=== PATIENT | male | born 1970 | race Caucasian/White ===

== ENCOUNTER 2020-04-23 16:50 | Emergency (ER) | payer OTHER, SELFPAY ==
[2020-04-23 17:06] VITALS: BP 161/87; PULSE 72; RESP 18; TEMP 36.7; O2SAT 99
--- NOTE | 2020-04-23 17:29 | ED.WOUNDLAC ---
HPI - Wound/Laceration General Chief Complaint: Wound/Laceration Stated Complaint: left hand injury Source: patient Mode of arrival: ambulatory Limitations: no limitations History of Present Illness HPI narrative: Lacerated left thumb at 4:45 PM today while cutting wood with a hand saw. The thumb hurts. He denies numbness.He's able to flex and extend at the MCP and IP joint. Last tetanus over 6 years ago. Related Data Allergies Allergy/AdvReac Type Severity Reaction Status Date / Time No Known Allergies Allergy Verified 04/23/20 17:05 Review of Systems Constitutional: Constitutional: Denies chills and Denies fever(s) Musculoskeletal: Musculoskeletal: Reports no additional musculoskeletal complaints Neurologic: Denies numbness PMFSH Past Medical History Medical History (Updated 04/25/20 @ 13:58 by Alberto Zavala MD) Patient denies significant medical history Social History Social History Gender identity (if verbalized by the patient): Male Exam Extrem: Other: lac. left dorsal proximal phalanx of thumb. Oozing blood. Active, painless , MCP and IP full extension and flexion. NO pain or weakness when extension and MCP and IP joints. Course Course Emergency Course: Bleeding stopped after 25 minutes of pressure dressing. I explained I cannot be certain there was no tendon injury based on incomplete evaluation of base of wound. Pt. given cephalexin and d.c. with instructions to f/u with Dr. Harris in 2 days. Vital Signs Vital signs: Vital Signs Temperature 36.7 C 04/23/20 17:06 Pulse Rate 72 04/23/20 17:06 Respiratory Rate 18 04/23/20 17:06 Blood Pressure 161/87 H 04/23/20 17:06 Pulse Oximetry 99 04/23/20 17:06 Temperature 36.4 C L 04/23/20 18:59 Pulse Rate 84 04/23/20 18:59 Respiratory Rate 16 04/23/20 18:59 Blood Pressure 154/69 H 04/23/20 18:59 Pulse Oximetry 100 04/23/20 18:59 Procedures Laceration Laceration 1: Date: 04/23/20 Time: 18:10 Site: hand (Transverse lac of dorsal proximal phalanx of thumb) Side (If applicable): left Size (cm): 2 Description: linear Depth: simple, single layer Local Anesthetic: lidocaine 1% Amount of anesthesia used (mL): 3 Pre-repair: wound explored (Full base of wound not completely visualized. 1 midline tendon visualized: intact) and irrigated (120 ml of water) ====== Skin Level ====== Skin layer closed with: nylon and prolene Size (cm): 3-0 and 4-0 Number of sutures: 4 Technique: simple, interrupted ====== Subcutaneous Layer ====== ====== Muscle Layer ====== ====== Tendon Layer ====== Dressing: nurse instructed to dress then splint IP joint only MDM - Wound/Laceration MDM Narrative Medical decision making narrative: Extensor polis longus appears intact and functional; partial laceration is possible. Discharge Plan Discharge Clinical Impression: Laceration Patient Disposition: Home, Self-Care Condition: Stable Instructions: Antibiotic Form, Finger Laceration (ED) Additional Instructions: keep splint on finger. See Dr. Harris in 2 days. Recheck if worse. Prescriptions: New cephalexin 500 mg capsule 500 mg PO Q8H Qty: 15 RF: 0 Follow-up/Referrals: Ayo Harris MD [Primary Care Provider] - Time of Disposition: 18:24 Discharge Date/Time: 04/23/20 19:02
[2020-04-23] MEDS: ACETAMINOPHEN 500 MG TABLET 1000 MG PO (17:42)
[2020-04-23] MEDS: TETANUS,DIPHTHERIA,AC PERTUSSIS ADULT 0.5 ML (ADACEL) IM (17:43)
[2020-04-23] MEDS: LIDOCAINE HCL 1% LOCAL INJ 20 ML VIAL 5 ML INFILTRATE (17:46)
--- NOTE | 2020-04-23 18:57 | PC.NURSE ---
left thumb suture line cleaned and bandaid applied. short metal finger splint applied to same. neuro-circ checks to distal left thumb wnl.
[2020-04-23 18:59] VITALS: BP 154/69; PULSE 84; RESP 16; TEMP 36.4; O2SAT 100
== END 2020-04-23 19:02 | disposition home or self-care (01) ==
PROVIDERS: Emergency Provider Family Medicine; PCP Internal Medicine
DX: S61.012A Laceration without foreign body of left thumb without damage to nail, initial encounter (principal); W27.8XXA Contact with other nonpowered hand tool, initial encounter
CPT/HCPCS: 12001; 90471; 90715; 99281; 99283; A9270

== ENCOUNTER 2020-09-11 15:12 | Outpatient (CLI) | payer OTHER, SELFPAY ==
[2020-09-11 16:09] LABS: SARS-CoV-2 Ag Negative (Negative)
== END 2020-09-11 15:13 | disposition home or self-care (01) ==
LOC: CHSLAB 15:15
PROVIDERS: PCP Internal Medicine; Visit Provider Internal Medicine
DX: Z20.828 Contact with and (suspected) exposure to other viral communicable diseases (principal)
CPT/HCPCS: 87426; C9803

== ENCOUNTER 2021-06-15 12:54 | Outpatient (CLI) | payer OTHER, SELFPAY ==
[2021-06-15 13:52] LABS: SARS-CoV-2 RNA PCR Negative (Negative)
== END 2021-06-15 12:55 | disposition home or self-care (01) ==
LOC: CHSLAB 12:57
PROVIDERS: PCP Internal Medicine; Visit Provider Internal Medicine
DX: Z20.822 Contact with and (suspected) exposure to COVID-19 (principal)
CPT/HCPCS: C9803; U0003; U0005

== ENCOUNTER 2022-01-05 08:17 | Outpatient (CLI) | payer OTHER, SELFPAY ==
[2022-01-05 09:00] LABS: Alanine Aminotransferase 99 U/L (16-63); Alkaline Phosphatase 91 U/L (46-116); Anion Gap 5 mmol/L (8-16); Aspartate Amino Transferase 35 U/L (15-37); Bilirubin,Total 0.6 mg/dL (0.00-1.00); Blood Urea Nitrogen 13 mg/dL (7-18); Carbon Dioxide 29 mmol/L (21-32); Chloride 100 mmol/L (98-108); Cholesterol 227 mg/dL (0-200); Estimated Glomerular Filt Rate > 60; Glucose 107 mg/dL (70-99); HDL Direct 44 mg/dL (40-60); LDL Cholesterol Calculated 155 mg/dL (<130); Osmolality Calculated 278 mOsm/kg (285-295); Potassium 4.4 mmol/L (3.5-5.1); Sodium 134 mmol/L (136-145); Total Protein 7.7 g/dL (6.4-8.2); Triglycerides 142 mg/dL (0-150)
[2022-01-10 04:50] LABS: Hepatitis A Antibody IgM Nonreactive; Hepatitis B Core Antibody Nonreactive (Nonreactive); Hepatitis B Surface Antigen Nonreactive (Nonreactive); Hepatitis C Signal to Cutoff 0.01 ratio (<1.00); Hepatitis C Virus Antibody Nonreactive (Nonreactive)
== END 2022-01-05 08:18 | disposition home or self-care (01) ==
LOC: CHSLAB 08:19
PROVIDERS: PCP Internal Medicine; Visit Provider Internal Medicine
DX: E78.5 Hyperlipidemia, unspecified (principal); R94.5 Abnormal results of liver function studies
CPT/HCPCS: 36415; 80053; 80061; 80074

== ENCOUNTER 2022-08-20 03:38 | Emergency (ER) | payer OTHER, SELFPAY ==
[2022-08-20] VITALS (25 sets, daily range): BP systolic 112–146; BP diastolic 61–83; PULSE 76–108; RESP 16–24; TEMP 36.2–37.9; O2SAT 90–97
--- NOTE | ~2022-08-20 | XR_ITS ---
EXAMINATION: XR chest 1V portable DATE: 08/20/2022 04:11 INDICATION: Cough and shortness of breath. TECHNIQUE: A single frontal view of the chest was obtained. COMPARISON: Chest 2 views 02/23/2016 FINDINGS: There are airspace opacities in left lower lobe, consistent with pneumonia. No pleural effu ayaka or pneumothorax. The heart size is normal. IMPRESSION: 1. Left lower lobe pneumonia. Reviewed, dictated and finalized at location A. OR SOLUTIONS ARCHITECT
--- NOTE | ~2022-08-20 | CT_ITS ---
EXAMINATION: CTA chest PE protocol DATE: 08/20/2022 05:45 INDICATION: Shortness of breath. TECHNIQUE: Computed tomography angiography (CTA) of the chest was performed with 100 mL Omnipaque-350 intravenous contrast timed to evaluate the pulmonary arteries. Coronal maximum intensity projection 3D-reconstructions were created by the technologist. Automated exposure control and iterative reconst ruction technique were employed. The dose-length product was 823.82 mGy-cm. COMPARISON: None. FINDINGS: There is mild emphysema. There are airspace opacities in left lower lobe with air bronchogr ams, consistent with pneumonia. There is mild atelectasis bilaterally. No pleural effusion. The heart size is normal. No pericardial effusion. There is no pulmonary embolus. There is mild thoracic spond ylosis. There is mild chronic anterior wedging of multiple vertebral bodies. IMPRESSION: 1. No pulmonary embolus. 2. Left lower lobe pneumonia. 3. Mild emphysema. Reviewed, dictated and finalized at location A. COAT WIPER
--- NOTE | 2022-08-20 03:51 | ED.URI ---
HPI - URI/Sore Throat General Chief Complaint: Upper Respiratory Infection Stated Complaint: sick Time Seen by Provider: 08/20/22 03:51 Source: patient Mode of arrival: ambulatory Limitations: no limitations History of Present Illness HPI Narrative: 51-year-old male presents to the ER with a 4 day history of -- generalized weakness and body -- nonproductive cough -- sore throat -- shortness of breath -- fever with the current temperature of 100.3? prior history of bronchitis. patient is a nonsmoker not COVID vaccinated MD elicited complaint: fever, cough and sore throat Onset (ago): day(s) ( symptoms started 4 days ago.) Consistency: constant Severity: moderate Able to tolerate fluids by mouth: Yes Exacerbating factors: nothing Relieving factors: nothing Associated symptoms: fever, myalgias, sore throat, cough, shortness of breath and nausea Treatments prior to arrival: none Related Data Allergies Allergy/AdvReac Type Severity Reaction Status Date / Time No Known Allergies Allergy Verified 04/23/20 17:05 Review of Systems Review of Systems: All systems reviewed & are unremarkable except as noted in HPI and below Constitutional: Constitutional: Reports as per HPI, Reports no additional constitutional complaints, Reports fever(s) and Reports weakness Eyes: Eyes: Reports as per HPI and Reports no additional eye complaints ENT: Reports system reviewed and no additional complaints, except as documented, Reports as per HPI and Reports sore throat Cardiovascular: Cardiovascular: Reports as per HPI and Reports no additional cardiovascular complaints Respiratory: Respiratory: Reports as per HPI and Reports no additional respiratory complaints Gastrointestinal: Gastrointestinal: Reports as per HPI, Reports no additional gastrointestinal complaints and Reports nausea Genitourinary: Genitourinary: Reports no additional male genitourinary complaints and Reports as per HPI Musculoskeletal: Musculoskeletal: Reports no additional musculoskeletal complaints and Reports as per HPI Integumentary/Breasts: Skin/Breast: Reports system reviewed and no additional complaints, except as docu and Reports as per HPI Neurologic: Reports system reviewed and no additional complaints, except as documented and Reports as per HPI Psychiatric: Psychiatric: Reports no additional psychiatric complaints and Reports as per HPI Endocrine: Endocrine: Reports no additional endocrine complaints and Reports as per HPI Hematologic/Lymphatic: Hematologic/Lymphatic: Reports no additional hematologic/lymphatic complaints and Reports as per HPI Allergic/Immunologic: Allergic/Immunologic: Reports no additional allergic/immunologic complaints and Reports as per HPI PMF Past Medical History Medical History Patient denies significant medical history Social History Social History Gender identity (if verbalized by the patient): Male Exam Const: General: no acute distress Nutritional Appearance: well nourished Orientation/consciousness: patient oriented x3 Limitations: no limitations HENMT: Head: normal to inspection Ears: external ears normal Face/Nose/Sinus: Normal external nose present Face and sinus: normal facial exam Mouth: Yes Normal oral and palatal mucosa present Throat: posterior oropharynx normal ( Pharyngeal erythema) Eyes: Conjunctivae: conjunctivae normal Pupils: Equal, round and reactive pupils present EOM: EOMs intact bilaterally Direct Ophthalmoscopy: no photophobia Neck: Neck: normal visual inspection, no lymphadenopathy and no meningeal signs Resp: Effort & Inspection: normal respiratory effort Auscultation: diminished lung sounds Cardio: Rate: regular rate Rhythm: regular rhythm GI: GI Palp: Yes Soft to palpation Other: no tenderness/rigidity / rebound. : General: Yes no CVA tenderness Testes: Te
--- NOTE | 2022-08-20 04:00 | ECG_ITS ---
Measurements Intervals Boyd Rate: 91 P: 67 ID: [id number] QRS: 5 QRSD: 87 T: 51 QT: 315 QTc: 389 Interpretive Statements SINUS RHYTHM NONSPECIFIC T-WAVE ABNORMALITY NO PREVIOUS ECG AVAILABLE FOR COMPARISON Electronically Signed On 08-20-2022 19:15:[address] LIGHT REPAIRER HELPER by Ann Horton M.D.
[2022-08-20] MEDS: IPRATROPIUM 0.5 MG/ALBUTEROL SULFATE 2.5 MG AMPUL.NEB 3 ML INHALATION (04:15)
[2022-08-20] MEDS: ACETAMINOPHEN 325 MG TABLET 650 MG PO (04:26)
[2022-08-20 04:31] LABS: Basophils Absolute Auto 0.01 K/mm3 (0.00-0.10); Basophils Percent Auto 0.1 % (0.0-1.0); Eosinophils Absolute Auto 0.02 K/mm3 (0.02-0.50); Eosinophils Percent Auto 0.2 % (1.0-6.0); Hematocrit 43.1 % (40.0-54.0); Hemoglobin 14.9 g/dL (14.0-18.0); Immature Granulocyte Absolute 0.02 K/mm3 (0.00-0.00); Immature Granulocyte Percent A 0.2 % (0.0-0.0); Lymphocytes Absolute Auto 0.77 K/mm3 (1.10-4.50); Lymphocytes Percent Auto 9.2 % (18.0-42.0); Mean Corpuscular HGB Conc 34.6 g/dL (32.0-36.0); Mean Corpuscular Hemoglobin 33.3 pg (27.0-31.0); Mean Corpuscular Volume 96.2 fL (78.0-102.0); Mean Platelet Volume 9.6 fl (8.7-11.0); Monocytes Absolute Auto 0.58 K/mm3 (0.10-0.90); Monocytes Percent Auto 6.9 % (2.0-11.0); Neutrophils Percent Auto 83.4 % (50.0-70.0); Platelet Count Result 165 K/mm3 (150-420); Red Blood Count 4.48 M/mm3 (4.70-6.10); Red Cell Distribution Width 11.8 % (11.6-14.4); White Blood Count 8.4 K/mm3 (4.8-10.8)
[2022-08-20 04:42] LABS: Strep Group A RT-PCR NOT DETECTED (Negative)
[2022-08-20 04:44] LABS: INR 1.1; Prothrombin Time 11.6 Seconds (9.50-12.10)
[2022-08-20 04:48] LABS: Influenza A QL RT-PCR Negative (Negative); Influenza B QL RT-PCR Negative (Negative); SARS-CoV-2 RNA PCR Negative (Negative)
[2022-08-20 04:51] LABS: Lactic Acid Reflex 1.2 mmol/L (0.4-2.0)
[2022-08-20 04:53] LABS: Alanine Aminotransferase 45 U/L (16-63); Albumin Level 3.9 g/dL (3.4-5.0); Alkaline Phosphatase 75 U/L (46-116); Anion Gap 8 mmol/L (8-16); Aspartate Amino Transferase 22 U/L (15-37); Bilirubin,Total 0.9 mg/dL (0.00-1.00); Blood Urea Nitrogen 17 mg/dL (7-18); Calcium 8.4 mg/dL (8.5-10.1); Carbon Dioxide 28 mmol/L (21-32); Chloride 97 mmol/L (98-108); Estimated CRCL calculation 99 ml/min; Estimated Glomerular Filt Rate > 60; Glucose 120 mg/dL (70-99); NT Pro B Type Natriuretic Pept 15 pg/mL (0-125); Osmolality Calculated 278 mOsm/kg (285-295); Potassium 3.9 mmol/L (3.5-5.1); Sodium 133 mmol/L (136-145); Total Protein 7.3 g/dL (6.4-8.2); Troponin I 8.5 ng/L (0.00-60.4)
[2022-08-20 05:12] LABS: D Dimer 0.62 mg/L (0.19-0.50)
[2022-08-20] MEDS: LACTATED RINGERS 1,000 ML 999 ML IV CONT (06:08)
--- NOTE | 2022-08-20 07:03 | PC.NURSE ---
report to sepideh brown , no questions or concerns.
== END 2022-08-20 08:24 | disposition home or self-care (01) ==
PROVIDERS: Emergency Provider Internal Medicine Critical Care Medicine; PCP Internal Medicine
DX: J18.9 Pneumonia, unspecified organism (principal); Z20.822 Contact with and (suspected) exposure to COVID-19; R06.02 Shortness of breath
CPT/HCPCS: 36415; 71045; 71275; 80053; 83605; 83880; 84484; 85025; 85380; 85610; 87636; 87651; 93005; 94640; 96361; 96365; 99284; A9270; J1956; J7120; Q9967

== ENCOUNTER 2022-09-23 15:55 | Outpatient (CLI) | payer OTHER, SELFPAY ==
--- NOTE | ~2022-09-23 | XR_ITS ---
XR chest 2V 09/23/2022 16:11 Indication: Follow-up pneumonia Procedure: 2 view chest Comparison: Comparison to multiple prior studies sequentially, with oldest reviewed study dated 02/22. Findings: Heart size normal. No focal air space disease, pulmonary edema, pleural effusion or suspect ed pneumothorax. No acute osseous abnormality. Impression: 1: No acute cardiopulmonary disease. Reviewed, dictated and finalized at location A. TRONIC PREPRESS OPERATOR Impression: 1: No acute cardiopulmonary disease.
== END 2022-09-23 15:56 | disposition home or self-care (01) ==
LOC: CHSIMG 15:57
PROVIDERS: PCP Internal Medicine; Visit Provider Internal Medicine
DX: J18.9 Pneumonia, unspecified organism (principal)
CPT/HCPCS: 71046

== ENCOUNTER 2023-01-18 09:37 | Outpatient (CLI) | payer OTHER, SELFPAY ==
[2023-01-18 09:56] LABS: Basophils Absolute Auto 0.03 K/mm3 (0.00-0.10); Basophils Percent Auto 0.5 % (0.0-1.0); Eosinophils Absolute Auto 0.07 K/mm3 (0.02-0.50); Eosinophils Percent Auto 1.1 % (1.0-6.0); Hematocrit 45.3 % (40.0-54.0); Hemoglobin 15.9 g/dL (14.0-18.0); Immature Granulocyte Absolute 0.01 K/mm3 (0.00-0.00); Immature Granulocyte Percent A 0.2 % (0.0-0.0); Lymphocytes Absolute Auto 1.58 K/mm3 (1.10-4.50); Mean Corpuscular HGB Conc 35.1 g/dL (32.0-36.0); Mean Corpuscular Hemoglobin 33.9 pg (27.0-31.0); Mean Corpuscular Volume 96.6 fL (78.0-102.0); Mean Platelet Volume 9.4 fl (8.7-11.0); Monocytes Absolute Auto 0.45 K/mm3 (0.10-0.90); Monocytes Percent Auto 6.8 % (2.0-11.0); Neutrophils Absolute Auto 4.4 K/mm3 (1.7-7.2); Neutrophils Percent Auto 67.4 % (50.0-70.0); Platelet Count Result 196 K/mm3 (150-420); Red Blood Count 4.69 M/mm3 (4.70-6.10); Red Cell Distribution Width 12.1 % (11.6-14.4); White Blood Count 6.6 K/mm3 (4.8-10.8)
[2023-01-18 09:57] LABS: Appearance Urine Clear (Clear); Bilirubin Urine Negative (Negative); Blood Urine Negative (Negative); Color Urine Light Yellow (Yellow); Glucose Urine UA Negative (Negative); Ketones Urine Negative (Negative); Leukocyte Esterase Ur Negative (Negative); Nitrate Urine Negative (Negative); Protein Urine Negative (Negative); Specific Grav Ur 1.015 (1.010-1.020); Urobilinogen Urine 0.2 mg/dL (0.2-1.0)
[2023-01-18 10:49] LABS: Add Urine Microscopic? NO
[2023-01-18 11:12] LABS: Alanine Aminotransferase 72 U/L (16-63); Alkaline Phosphatase 93 U/L (46-116); Anion Gap 10 mmol/L (8-16); Aspartate Amino Transferase 29 U/L (15-37); Blood Urea Nitrogen 15 mg/dL (7-18); Carbon Dioxide 28 mmol/L (21-32); Chloride 102 mmol/L (98-108); Cholesterol 238 mg/dL (0-200); Estimated Glomerular Filt Rate > 60; Glucose 94 mg/dL (70-99); HDL Direct 44 mg/dL (40-60); LDL Cholesterol Calculated 150 mg/dL (<130); Osmolality Calculated 290 mOsm/kg (285-295); Potassium 4.4 mmol/L (3.5-5.1); Prostate Specific Antigen 1.9 ng/mL (< OR = 4.0); Sodium 140 mmol/L (136-145); Thyroid Stimulating Hormone 2.47 uIU/mL (0.36-3.74); Total Protein 7.3 g/dL (6.4-8.2); Triglycerides 218 mg/dL (0-150)
== END 2023-01-18 09:38 | disposition home or self-care (01) ==
PROVIDERS: PCP Internal Medicine; Visit Provider Internal Medicine
DX: Z00.00 Encounter for general adult medical examination without abnormal findings (principal)
CPT/HCPCS: 36415; 80053; 80061; 81003; 84153; 84443; 85025; G0103

== ENCOUNTER 2023-04-30 07:32 | Outpatient (CLI) | payer OTHER, SELFPAY ==
--- NOTE | ~2023-04-30 | US_ITS ---
US right upper quadrant INDICATION: Elevated liver enzymes PROCEDURE: Realtime right upper abdominal ultrasound. COMPARISON: No prior studies for comparison. FINDINGS: The pancreas is normal without focal mass or pancreatic ductal dilation. Liver echotexture is diffusely increased, consistent with fatty infiltration. There is normal directional flow in the portal vein. The gallbladder is normal without stones, gallbladder wall thickening or pericholecystic fluid. Comm on bile duct measures 5.9 mm. No sonographic Carpenter's sign. IMPRESSION: 1: Hepatic steatosis. Reviewed, dictated and finalized at location B. IMPRESSION: 1: Hepatic steatosis.
== END 2023-04-30 07:33 | disposition home or self-care (01) ==
LOC: CHSIMG 07:34
PROVIDERS: PCP Internal Medicine; Visit Provider Internal Medicine
DX: R94.5 Abnormal results of liver function studies (principal); K76.0 Fatty (change of) liver, not elsewhere classified
CPT/HCPCS: 76705

== ENCOUNTER 2023-05-26 15:03 | Outpatient (CLI) | payer OTHER, SELFPAY ==
--- NOTE | ~2023-05-26 | CT_ITS ---
EXAMINATION:CT lung screening DATE: 05/26/2023 15:23 INDICATION: Personal history of nicotine dependence. Smoker who quit 7 years ago with 25 pack year hi story. TECHNIQUE: Computed tomography (CT) of the chest was performed without intravenous contrast. Automate d exposure control and iterative reconstruction technique were employed. The dose-length product (DLP ) was 161.51 mGy-cm. COMPARISON: Chest CT 08/23/2022 FINDINGS: There is mild emphysema. The lungs demonstrate minimal atelectasis. There is a 2 mm nodule in right lower lobe. There is mild scarring lung apices. No pleural effusion. The heart size is jonnie l. No pericardial effusion. There is mild bilateral gynecomastia. There is diffuse hepatic steatosis. There is mild thoracic spondylosis. There is mild chronic anterior wedging of multiple vertebral bod ies. IMPRESSION: 1. Lung-RADS category 2: Benign appearance or behavior. Continue annual screening with noncontrast lo w-dose chest CT in 12 months. Reviewed, dictated and finalized at location E. IMPRESSION: 1. Lung-RADS category 2: Benign appearance or behavior. Continue annual screeni ng with noncontrast low-dose chest CT in 12 months.
== END 2023-05-26 15:04 | disposition home or self-care (01) ==
LOC: CHSIMG 15:04
PROVIDERS: PCP Internal Medicine; Visit Provider Internal Medicine
DX: Z12.2 Encounter for screening for malignant neoplasm of respiratory organs (principal); Z87.891 Personal history of nicotine dependence
CPT/HCPCS: 71271

== ENCOUNTER 2023-06-30 09:33 | Outpatient (NON) | payer OTHER, SELFPAY | END 2023-06-30 09:34 | disposition home or self-care (01) | PROVIDERS: PCP Internal Medicine; Visit Provider Internal Medicine Gastroenterology | DX: Z12.11 Encounter for screening for malignant neoplasm of colon (principal) | CPT/HCPCS: 88305 ==

== ENCOUNTER 2023-06-30 10:11 | Day surgery (SDC) | payer OTHER, SELFPAY ==
[2023-06-16 14:21] VITALS: BMI 28.6
[2023-06-30] MEDS: LACTATED RINGERS 1,000 ML 150 ML IV CONT (10:39)
--- NOTE | 2023-06-30 10:54 | WPDANESEPPF ---
Anes - Initial Pre Proc Eval Procedure: Operation Date: 06/30/23 13:30 Proposed Procedures p Screening Colonoscopy - Praneeth Morejon MD Date/Time: 06/30/23 10:54 Surgeon: Praneeth Morejon MD Pre Op Diagnosis: Neoplasm Screening Patient Data Age: 52 Gender: M Height: 1.91 m Weight: 103 kg Allergies Allergy/AdvReac Type Severity Reaction Status Date / Time No Known Allergies Allergy Verified 06/30/23 10:27 Home Medications Medication Instructions Recorded Confirmed Type No Home Medications 06/16/23 06/30/23 History Patient hx anesthesia problems: none Family hx anesthesia problems: none Results Review: All pre-operative results and documents have been reviewed as part of the pre-operative evaluation. [facility] Past Medical History Medical History (Updated 06/30/23 @ 10:54 by Jarrod Carlin MD) Overweight Patient denies significant medical history Social History Social History Smoking status: Former smoker Alcohol intake: current Substance use type: does not use Living arrangements: with family Gender identity (if verbalized by the patient): Male Spiritual care concerns: No Anes - Eval Final PreProcedure Day of Procedure 06/30/23 10:54 Patient weight: overweight Heart: regular rate and rhythm Lungs: clear to auscultation Airway: Mallampati scale class II Neurological: alert and oriented Last oral intake: >/= 8 hours ASA classification: II Emergent: no Anesthetic plan: proceed Anesthesia type and monitoring: general GIVS and standard monitoring Results Review: All pre-operative results and documents have been reviewed as part of the pre-operative evaluation. Informed Consent: The patient's anesthetic plan and its attendant risks and benefits were discussed with the patient/family/POA. Questions were solicited and answers provided to the satisfaction of the patient/family/POA.
[2023-06-30 11:17] VITALS: BP 140/95; PULSE 75; RESP 16; TEMP 37.3; O2SAT 96
--- NOTE | 2023-06-30 11:21 | PM.HPGS ---
History of Present Illness History of Present Illness Consent: Risks, benefits, and alternatives have been discussed and questions answered. Patient agrees to proceed with procedure. Chief complaint: Neoplasm Screening Narrative: Kaleb Pryor is a 52 year old male here for first screening colonoscopy Review of Systems Constitutional: Constitutional: Denies headache(s) and Denies weakness Eyes: Eyes: Denies blurry vision ENT: Reports Normal hearing present, Denies headache(s) and Denies neck pain Cardiovascular: Cardiovascular: Denies chest pain and Denies dyspnea Respiratory: Respiratory: Denies dyspnea Gastrointestinal: Gastrointestinal: Reports no additional gastrointestinal complaints Genitourinary: Genitourinary: Denies dysuria Musculoskeletal: Musculoskeletal: Denies neck pain Integumentary/Breasts: Skin/Breast: Denies dry skin Neurologic: Reports Normal hearing present, Denies headache(s) and Denies weakness Psychiatric: Psychiatric: Denies anxiety Endocrine: Endocrine: Denies change in body appearance Hematologic/Lymphatic: Hematologic/Lymphatic: Denies easy bleeding Allergic/Immunologic: Allergic/Immunologic: Denies urticaria PMF Past Medical History Medical History (Updated 06/30/23 @ 11:21 by Praneeth Morejon MD) Colon cancer screening Overweight Patient denies significant medical history Social History Social History Smoking status: Former smoker Alcohol intake: current Substance use type: does not use Living arrangements: with family Gender identity (if verbalized by the patient): Male Spiritual care concerns: No Meds Home Medications and Allergies Home Medications Medication Instructions Recorded Confirmed Type No Home Medications 06/16/23 06/30/23 History Allergies Allergy/AdvReac Type Severity Reaction Status Date / Time No Known Allergies Allergy Verified 06/30/23 10:27 Vital Signs Vital Signs - 24 hr 06/30/23 11:17 Temperature 99.1 F Pulse Rate 75 Respiratory Rate 16 Blood Pressure 140/95 H Pulse Oximetry 96 Oxygen Delivery Room Air Exam Const: General: comfortable and no acute distress HENMT: Face/Nose/Sinus: Normal nares present Eyes: General: appearance normal, both eyes and all related structures Neck: Neck: no JVD Resp: Auscultation: clear to auscultation bilaterally Cardio: Rate: regular rate Rhythm: regular rhythm GI: Inspection: non-distended GI Palp: Yes Soft to palpation Skin: General skin exam: normal color Neuro: General: gait normal Speech: normal speech Extrem: General: normal to inspection Psych: Mental Status: mental status grossly normal Assessment and Plan Assessment and plan (1) Colon cancer screening: Code(s): Z12.11 - Encounter for screening for malignant neoplasm of colon Status: Acute Assessment and Plan: colonoscopy
[2023-06-30 11:40] VITALS: BP 128/81; PULSE 62; RESP 18; O2SAT 99
[2023-06-30 11:50] VITALS: BP 114/84; PULSE 57; RESP 20; O2SAT 98
--- NOTE | 2023-06-30 11:55 | WPDANESPN ---
Anes - Prog Note Post-Op Date/Time: 06/30/23 11:55 Cardiovascular status: normal Respiratory status: normal Airway patency: baseline Mental status: baseline Post-Op hydration status: normal Vital Signs: Last Vital Signs Temp 37.3 C 06/30/23 11:17 Pulse 62 06/30/23 11:40 Resp 18 06/30/23 11:40 BP 128/81 06/30/23 11:40 Pulse Ox 99 06/30/23 11:40 O2 Del Method Room Air 06/30/23 11:40 Pain Score (VAS): 0/10 I/O: Intake & Output 06/29/23 06/30/23 06/30/23 23:59 07:59 15:59 Intake Total 300 Balance 300 Patient Feedback: Patient satisfied with anesthetic care.
[2023-06-30 12:00] VITALS: BP 130/68; PULSE 62; RESP 20; O2SAT 98
== END 2023-06-30 12:10 | disposition home or self-care (01) ==
PROVIDERS: PCP Internal Medicine; Visit Provider Internal Medicine Gastroenterology
PROC: 0DJD8ZZ Inspection of Lower Intestinal Tract, Via Natural or Artificial Opening Endoscopic (ICD-10-PCS; CPT 45378; principal; 2023-06-30 13:30)
DX: K57.30 Diverticulosis of large intestine without perforation or abscess without bleeding (principal); K63.5 Polyp of colon
CPT/HCPCS: 45380

== ENCOUNTER 2023-10-17 01:11 | Day surgery (SDC) | payer BC, SELFPAY ==
[2023-10-14 16:01] VITALS: BMI 28.5
--- NOTE | 2023-10-14 16:09 | PC.NURSE ---
Report to the Outpatient Waiting Room, entrance under the green pavilion located off [facility], at time _1100 on date __10/17/23 . Planned Procedure Time: _1300 . Time changes happen often and if your time is changed the preop area will call you the afternoon before. - You and your visitor will be asked to self-screen and do not enter if you have any COVID symptoms. - A mask is optional within the hospital at this time. Patients may have clear liquids (water, carbonated beverages, clear teas, apple juice) until 3 hours prior to surgery with a maximum of 20 ounces. - No food from midnight until time of surgery - Infants may have breast milk until 4 hours before surgery, formula 6 hours prior to surgery. - Children will be allowed to drink immediately following surgery. If applicable, please bring a bottle or sippy cup to assist with drinking. Juice, water, soda, and popsicles are readily available. For infants on formula, please bring formula the day of surgery. Pacifiers are allowed. Take the following medications with a SIP of water the morning of surgery: ____N/A DO NOT STOP ANY OF YOUR OTHER PRESCRIPTION MEDICATIONS PRIOR TO SURGERY ?EXCEPT THE FOLLOWING Medications to discontinue per physician ___N/A Date to take last dose___N/A Please no make-up, nail thai, hairspray, perfume, deodorant, or body powder the day of surgery. No jewelry (including any body piercings) or valuables the day of surgery, leave them at home. Please take a shower or bath the night before, or the morning of, surgery with an antibacterial soap. Wear comfortable, loose fitting clothing. Children are encouraged to wear pajamas. - Jewelry must be removed prior to entering the operating room. Rings and piercings that are not removed may be cut off. - The hospital will not accept responsibility for valuables. - Please leave all valuables, including medications, at home the day of surgery. If you are going home after surgery, a licensed lifter/driver must drive you home. - NO public transportation without another adult if you receive anesthesia. - We recommend that an adult stay with you for 24 hours following discharge. - We also recommend that you do not drive, make important decision, drink alcoholic beverages, or take any drugs that were not prescribed by your health care provider for at least 24 hours after your discharge time. For Pediatric surgeries, we recommend two adults accompany the child home. Follow any additional instructions given to you from your surgeon. If you or anyone in your household have experienced Covid symptoms in the past week, please notify your surgeon or the nurse liaison at the phone number below for possible testing. Telephone instructions given to _Kaleb Pryor__and asked if any additional questions and then verbalized understanding. Patient advised to call surgeon office or pre surgery nurse liaison [phone] if any additional questions.
[2023-10-17 11:22] VITALS: BP 143/73; PULSE 59; RESP 20; TEMP 36.4; O2SAT 99
--- NOTE | 2023-10-17 11:58 | WPDANESEPPF ---
Anes - Initial Pre Proc Eval Procedure: Operation Date: 10/17/23 13:00 Proposed Procedures p Excision of Left Upper Back Mass - Hilton Juarez DO Date/Time: 10/17/23 11:58 Surgeon: Hilton Juarez DO Pre Op Diagnosis: 7cm back mass Patient Data Age: 52 Gender: M Height: 1.93 m Weight: 106.8 kg Last Vital Signs Temp 97.6 F 10/17/23 11:22 Pulse 59 L 10/17/23 11:22 Resp 20 10/17/23 11:22 BP 143/73 H 10/17/23 11:22 Pulse Ox 99 10/17/23 11:22 O2 Del Method Room Air 10/17/23 11:22 Allergies Allergy/AdvReac Type Severity Reaction Status Date / Time No Known Allergies Allergy Verified 10/17/23 11:26 Home Medications Medication Instructions Recorded Confirmed Type No Home Medications 06/16/23 10/17/23 History Patient hx anesthesia problems: none Family hx anesthesia problems: none Results Review: All pre-operative results and documents have been reviewed as part of the pre-operative evaluation. [facility] Past Medical History Medical History (Updated 08/14/23 @ 13:19 by Fernanda Mcfarlane CMA) Colon cancer screening Overweight Family History Family History Other Cancer Diabetes mellitus Hypertension Social History Social History Years smoked: 30 Smoking status: Former smoker Tobacco type: cigarettes Smoking end date: 09/08/15 Alcohol intake: current Drinks per week: 56 Alcohol use details: 6-8 per night Substance use type: does not use Living arrangements: with family Gender identity (if verbalized by the patient): Male Spiritual care concerns: No Anes - Eval Final PreProcedure Day of Procedure 10/17/23 11:58 Patient weight: normal Heart: regular rate and rhythm Lungs: clear to auscultation Airway: Mallampati scale class II Neurological: alert and oriented Last oral intake: >/= 8 hours ASA classification: II Emergent: no Anesthetic plan: proceed Anesthesia type and monitoring: general GIVS and standard monitoring Results Review: All pre-operative results and documents have been reviewed as part of the pre-operative evaluation. Informed Consent: The patient's anesthetic plan and its attendant risks and benefits were discussed with the patient/family/POA. Questions were solicited and answers provided to the satisfaction of the patient/family/POA.
[2023-10-17] MEDS: LACTATED RINGERS 1,000 ML 30 ML IV CONT (12:05)
--- NOTE | 2023-10-17 13:07 | WPDHPUPDATE1 ---
History and Physical Update Update Date/Time: 10/17/23 13:07 History and Physical has been reviewed, including an updated exam of the patient. There are NO changes in the patient's condition. Risks, benefits, and alternatives have been discussed and questions answered. Patient agrees to proceed with procedure.
--- NOTE | 2023-10-17 13:07 | PM.IMHP ---
H&P: HPI History of Present Illness Date/Time: 10/17/23 13:07 Chief Complaint: Back mass Narrative: This is a 52-year-old man who presents for excision of 7 cm left upper back mass. He denies any significant changes since last seen in the office. Review of Systems Review of Systems: All systems reviewed & are unremarkable except as noted in HPI and below Constitutional: Constitutional: Denies chills, Denies fever(s), Denies headache(s) and Denies weight loss Eyes: Eyes: Denies change in vision ENT: Denies dizziness, Denies headache(s), Denies neck mass and Denies throat swelling Cardiovascular: Cardiovascular: Denies chest pain, Denies lightheadedness and Denies dyspnea Respiratory: Respiratory: Denies cough, Denies dyspnea and Denies wheezing Gastrointestinal: Gastrointestinal: Denies abdominal pain, Denies change in bowel habits, Denies nausea and Denies vomiting Genitourinary: Genitourinary: Denies hematuria and Denies dysuria Musculoskeletal: Musculoskeletal: Reports as per HPI Integumentary/Breasts: Skin/Breast: Reports as per HPI Neurologic: Denies dizziness and Denies headache(s) Allergic/Immunologic: Allergic/Immunologic: Denies throat swelling and Denies wheezing [facility] Past Medical History Medical History (Updated 08/14/23 @ 13:19 by Fernanda Mcfarlane CMA) Colon cancer screening Overweight Family History Family History Other Cancer Diabetes mellitus Hypertension Social History Social History Years smoked: 30 Smoking status: Former smoker Tobacco type: cigarettes Smoking end date: 09/08/15 Alcohol intake: current Drinks per week: 56 Alcohol use details: 6-8 per night Substance use type: does not use Living arrangements: with family Gender identity (if verbalized by the patient): Male Spiritual care concerns: No Meds Home Medications and Allergies Home Medications Medication Instructions Recorded Confirmed Type No Home Medications 06/16/23 10/17/23 History Allergies Allergy/AdvReac Type Severity Reaction Status Date / Time No Known Allergies Allergy Verified 10/17/23 12:06 Vital Signs Vital Signs - 24 hr 10/17/23 11:22 Temperature 36.4 C Pulse Rate 59 L Respiratory Rate 20 Blood Pressure 143/73 H Pulse Oximetry 99 Oxygen Delivery Room Air Exam Const: General: no acute distress and alert Orientation/consciousness: patient oriented x3 HENMT: Head: normocephalic and atraumatic Ears: hearing grossly normal bilaterally Face/Nose/Sinus: Normal nares present Mouth: Yes Normal oral and palatal mucosa present Eyes: Periorbital: periorbital findings normal Sclera: sclerae normal EOM: EOMs intact bilaterally Neck: Neck: normal visual inspection, no lymphadenopathy and trachea midline Chest: Chest palpation & inspection: normal inspection of the chest Resp: Effort & Inspection: normal respiratory effort Auscultation: clear to auscultation bilaterally Cardio: Jugular venous distension: no JVD Rate: regular rate Rhythm: regular rhythm Heart sounds: S1 normal heart sound present and S2 normal heart sound present Peripheral pulses: Peripheral pulses 2+ throughout GI: Inspection: normal to inspection GI Palp: Yes Soft to palpation, No Tenderness to palpation present (GI), No Guarding due to palpation present (GI) and No Rebound tenderness present Percussion: Yes normal to percussion Auscultation: normal bowel sounds : General: Yes no CVA tenderness Back/Spine/Pelvis: Back: no CVA tenderness Skin: Other: 7 cm soft mobile left upper back mass, likely a lipoma. Neuro: General: patient oriented x3, no focal motor deficits and CN's II-XI intact bilaterally Cognition (Neuro): normal cognition Speech: normal speech Motor exam (neuro): 5/5 motor strength present throughout Extrem: General: capillary refil
[2023-10-17] MEDS: LIDO 1%/EPINEPHRINE 1:100,000 20 ML VIAL 50 ML INFILTRATE (13:33)
--- NOTE | 2023-10-17 13:58 | W.PM.PROC2 ---
Procedure Note - Detailed Date of Procedure 10/17/23 Pre-op Diagnosis 7cm back mass Post-op Diagnosis Same Procedure Performed Excision of 7 cm subcutaneous left upper back mass Surgeon Hilton Juarez, DO Anesthesia MAC and Local (1% lidocaine with epinephrine) Indications This is a 52-year-old man who presented with a back mass that has been gradually enlarging over time. It does not cause any significant pain but a little bit of pressure when he is leaning against it. It has continued to grow larger. The mass appeared to be likely a lipoma physical exam. Discussions were made with the patient about treatment options and decision was made to proceed with excision of 7 cm left upper back mass. Findings Excision of 7 cm left upper back mass was performed. The mass appeared to be a lipoma and was within the subcutaneous space. No other significant findings were identified. The mass was completely excised and sent to the lab for pathology. Description of Procedure Procedure as well as risks, benefits, and alternatives were discussed with the patient. Written consent was obtained and placed in chart prior to procedure. Patient was brought back to surgical suite. He was placed in right lateral decubitus position on the operating table. Time-out was done to confirm patient and procedure. IV sedation was then administered by the anesthesia department. His left upper back area was prepped and draped in sterile fashion using chlorhexidine prep. 1% lidocaine with epinephrine was infiltrated over the mass. A 15 blade scalpel was then used to make a 7 cm incision directly over the mass. The incision was carried down to the subcutaneous tissue. Electrocautery was then used for hemostasis and for continued dissection through the subcutaneous tissue. The mass was identified and carefully dissected free from the surrounding subcutaneous attachments using electrocautery. Hemostasis was achieved along the way. The mass was completely excised intact and sent to the lab for pathology. The wound bed was then inspected. Hemostasis appeared adequate no other abnormalities were noted. The skin edges were then reapproximated using 3-0 nylon vertical mattress interrupted sutures. Bacitracin ointment was then applied followed by 4 x 4 gauze and tape. The patient was then awakened from anesthesia and transferred to recovery. Estimated Blood Loss 5 Pathology Yes (7 cm left upper back mass) Complications No immediate complications Condition Stable Disposition Same day [facility] Billing Surgery - Charge Forward: Surgery Billing
[2023-10-17 14:10] VITALS: BP 128/62; PULSE 60; RESP 16; O2SAT 100
[2023-10-17 14:40] VITALS: BP 146/74; PULSE 59; RESP 16
[2023-10-17 15:07] VITALS: BP 147/56; PULSE 60; RESP 16
== END 2023-10-17 15:12 | disposition home or self-care (01) ==
PROVIDERS: PCP Internal Medicine; Visit Provider Surgery
PROC: (CPT 21931; principal; 2023-10-17 13:00)
DX: D17.1 Benign lipomatous neoplasm of skin and subcutaneous tissue of trunk (principal); Z87.891 Personal history of nicotine dependence
CPT/HCPCS: 21931; 88304; A9270; J1100; J2250; J2405; J2704; J3010; J7120

== ENCOUNTER 2023-11-15 08:17 | Outpatient (CLI) | payer BC, SELFPAY ==
[2023-11-15 09:00] LABS: Alanine Aminotransferase 47 U/L (16-63); Albumin Level 4.3 g/dL (3.4-5.0); Alkaline Phosphatase 85 U/L (46-116); Anion Gap 9 mmol/L (8-16); Aspartate Amino Transferase 20 U/L (15-37); Bilirubin,Total 1.3 mg/dL (0.00-1.00); Blood Urea Nitrogen 13 mg/dL (7-18); Calcium 8.9 mg/dL (8.5-10.1); Carbon Dioxide 29 mmol/L (21-32); Chloride 102 mmol/L (98-108); Cholesterol 227 mg/dL (0-200); Estimated Glomerular Filt Rate > 60; Glucose 103 mg/dL (70-99); HDL Direct 58 mg/dL (40-60); LDL Cholesterol Calculated 152 mg/dL (<130); Osmolality Calculated 290 mOsm/kg (285-295); Potassium 4.5 mmol/L (3.5-5.1); Sodium 140 mmol/L (136-145); Total Protein 7.3 g/dL (6.4-8.2); Triglycerides 85 mg/dL (0-150)
== END 2023-11-15 08:18 | disposition home or self-care (01) ==
PROVIDERS: PCP Internal Medicine; Visit Provider Internal Medicine
DX: E78.5 Hyperlipidemia, unspecified (principal); R94.5 Abnormal results of liver function studies
CPT/HCPCS: 36415; 80053; 80061

== ENCOUNTER 2025-05-16 16:11 | Outpatient (CLI) | payer BC, SELFPAY ==
[2025-05-16 16:28] LABS: Hematocrit 44.2 % (40.0-54.0); Hemoglobin 14.9 g/dL (14.0-18.0); Mean Corpuscular HGB Conc 33.7 g/dL (32-36); Mean Corpuscular Hemoglobin 32.9 pg (27.0-31.0); Mean Corpuscular Volume 97.6 fL (78.0-102.0); Platelet Count Result 194 K/mm3 (150-420); Red Blood Count 4.53 M/mm3 (4.70-6.10); White Blood Count 6.3 K/mm3 (4.8-10.8)
[2025-05-16 16:46] LABS: Alanine Aminotransferase 30 U/L (6-50); Albumin Level 4.9 g/dL (3.5-5.1); Alkaline Phosphatase 83 U/L (38-126); Anion Gap 8 mmol/L (4-12); Aspartate Amino Transferase 29 U/L (17-59); Bilirubin,Total 1.3 mg/dL (0.2-1.3); Blood Urea Nitrogen 16 mg/dL (9-20); Calcium 9.9 mg/dL (8.4-10.2); Carbon Dioxide 29 mmol/L (22-30); Chloride 103 mmol/L (98-107); Cholesterol 200 mg/dL (0-200); Estimated Glomerular Filt Rate > 60; Glucose 93 mg/dL (65-110); HDL Direct 57 mg/dL; Osmolality Calculated 291 mOsm/kg (285-295); Potassium 4.6 mmol/L (3.4-5.0); Sodium 140 mmol/L (137-145); Total Protein 7.5 g/dL (6.3-8.2); Triglycerides 97 mg/dL (<150)
[2025-05-16 17:17] LABS: Prostate Specific Antigen 1.6 ng/mL (< OR = 4.0); Thyroid Stimulating Hormone 4.060 uIU/mL (0.465-4.680)
== END 2025-05-16 16:12 | disposition home or self-care (01) ==
PROVIDERS: PCP Internal Medicine; Visit Provider Internal Medicine
DX: Z00.00 Encounter for general adult medical examination without abnormal findings (principal); Z12.5 Encounter for screening for malignant neoplasm of prostate; E78.5 Hyperlipidemia, unspecified
CPT/HCPCS: 36415; 80053; 80061; 84153; 84443; 85027; G0103

== ENCOUNTER 2025-06-13 10:27 | Outpatient (CLI) | payer BC, SELFPAY ==
--- NOTE | ~2025-06-13 | CT_ITS ---
EXAMINATION:CT lung screening DATE: 06/13/2025 10:42 INDICATION: Personal history of nicotine dependence. 30 pack year history. TECHNIQUE: Computed tomography (CT) of the chest was performed without intravenous contrast. Automated exposure control and iterative reconstruction technique were employed. The dose-length product (DLP) was 152.33 mGy-cm. COMPARISON: Chest CT 05/26/2023 FINDINGS: There are is mild scarring at the lung apices. There is a 2 mm nodule and right lower lobe. There is a 3 mm nodule in left lower lobe. There is mild emphysema. There is no pleural effusion. There is mild bilateral gynecomastia. The heart size is normal. No pericardial effusion. There is diffuse hepatic steatosis. There is mild thoracic spondylosis. There is mild chronic anterior wedging of multiple mid thoracic vertebral bodies. IMPRESSION: 1. Lung-RADS category 2: Benign appearance or behavior. Continue annual screening with noncontrast low-dose chest CT in 12 months. Reviewed, dictated and finalized at location E. IMPRESSION: 1. Lung-RADS category 2: Benign appearance or behavior. Continue annual screeni ng with noncontrast low-dose chest CT in 12 months.
== END 2025-06-13 10:28 | disposition home or self-care (01) ==
PROVIDERS: PCP Internal Medicine; Visit Provider Internal Medicine
DX: Z12.2 Encounter for screening for malignant neoplasm of respiratory organs (principal); Z87.891 Personal history of nicotine dependence
CPT/HCPCS: 71271